=== PATIENT | female | born 1970 | race American Indian/Alaskan Native ===

== ENCOUNTER 2016-08-19 15:16 | Outpatient (CLI) | payer BC ==
--- NOTE | 2016-08-20 08:44 | Magnetic Resonance Report ---
MRI PELVIS WITHOUTAND WITH CONTRAST: 08/19/16 CLINICAL: Pelvic pain and bleeding. Status post embolization for fibroids. COMPARISON :None. TECHNIQUE: Sagittal, coronal and axial T1 and T2 fat sat sequences plus sagittal, coronal and axial postcontrast T1 fat sequences on a 1.5 Danya magnet. 15 cc of Multihance was injected intravenously for contrast portion of exam the consent was obtained prior to the administration of contrast. FINDINGS: An enlarged fibroid uterus measures approximately 18.7 cm craniocaudal dimension by 10.0 cm AP by 14.6 cm transverse dimension. The largest fibroid has complex architecture, is located subserosal in the uterine fundus to the left of midline and measures 9.0 x 6.0 x 5.9 cm. This fibroid demonstrates moderate residual enhancement. A second partially enhancing fibroid is located anterior subserosal uterine body to the left of midline and measures 3.2 x 3.8 x 3.6 centimeters. The rest of the fibroids (at least seven in number) are smaller and demonstrate no enhancement. The next largest fibroid is located submucosal in the posterior body and measures 5.0 x 5.8 cms. It demonstrates no enhancement. The uterine cavity is distended by complex nonenhancing material which is presumably blood. This measures 3 cm AP dimension. The endometrium is thin and measures approximately 6 mm. The left ovary is displaced far lateral and upward and measures 5.0 x 2.6 cm. It contains a 3.6 cm cyst. A right ovary is not identified. Minimal free fluid in the pelvis. IMPRESSION: 1. Enlarged fibroid uterus with two residual partially enhancing fibroids and at least seven non-enhancing fibroids. 2. Complex nonenhancing material distends the uterine cavity and is presumably blood or old hematoma. 3. A 3.6 cm cyst of the left ovary. 4. No right ovary identified.
== END 2016-08-19 15:17 | disposition home or self-care (01) ==
LOC: SPVIMAG 15:16
PROVIDERS: ATTEND Radiology Vascular & Interventional Radiology
DX: D25.9 Leiomyoma of uterus, unspecified (principal); N83.202 Unspecified ovarian cyst, left side; N93.9 Abnormal uterine and vaginal bleeding, unspecified
CPT/HCPCS: 72197; A9577

== ENCOUNTER 2016-12-07 10:25 | Emergency (ER) | payer BC ==
[2016-12-07] MEDS ORDERED: CATAPRES PO ONE (11:11)
--- NOTE | 2016-12-07 11:15 | Emergency Department Report ---
Chief Complaint: High BP Stated Complaint: BLOOD PRESSURE HIGH Time Seen by Provider: 12/07/16 11:10 - HPI History of Present Illness: This is a 46-year-old female with no known history was sent to the ER after being a physical today due to elevated blood pressure. Patient mentions that she has been given generalized frontal throbbing headache for the past week. She states she takes no medications. She denies fevers/chills/shortness of breath/chest pain/blurred vision. - ROS Review of Systems: As noted in HPI - Exam Vital Signs: Vital Signs 12/07/16 10:48 Temperature 98.1 F Pulse Rate 64 Respiratory 18 Rate Blood Pressure 205/116 O2 Sat by Pulse 100 Oximetry Physical Exam: GENERAL: Alert and oriented x3, no apparent distress, Normal Gait, atraumatic. EYES: Extra ocular muscles are intact. Pupils are equal, round, and reactive to light and accommodation. HEART: S1, S2 present, regular rate and rhythm without murmur, no rubs, no gallops. Non tender to palpation MSE screening note: Focused history and physical exam performed. Due to findings the following was ordered: ED Medical Decision Making - Medical Decision Making Labs ordered. EKG ordered. Patient to be seen by ED physician. Clonidine 0.2 mg quadrant. Patient put in [facility] waiting area to be monitored ED Disposition for MSE Condition: Stable
[2016-12-07 12:01] LABS: Hematocrit 42.8 % (30.3-42.9); Hemoglobin 13.8 gm/dl (10.1-14.3); Mean Corpuscular HGB Conc 32 % (30-34); Mean Corpuscular Hemoglobin 27 pg (28-32); Mean Corpuscular Volume 82 fl (79-97); Platelet Count 321 K/mm3 (140-440); Red Blood Count 5.22 M/mm3 (3.65-5.03); White Blood Count 5.5 K/mm3 (4.5-11.0)
[2016-12-07 12:09] LABS: Red Cell Distribution Width 21.2 % (13.2-15.2)
[2016-12-07 12:11] LABS: INR 0.96 (0.87-1.13)
[2016-12-07 12:12] LABS: Partial Thromboplastin Time 22.1 Sec. (24.2-36.6)
[2016-12-07 12:23] LABS: Alanine Aminotransferase 10 units/L (7-56); Albumin 4.4 g/dL (3.9-5); Albumin/Globulin Ratio 1.1 %; Alkaline Phosphatase 91 units/L (35-129); Anion Gap 17 mmol/L; BUN/Creatinine Ratio 16.66; Blood Urea Nitrogen 10 mg/dL (7-17); Calcium 9.4 mg/dL (8.4-10.2); Carbon Dioxide 27 mmol/L (22-30); Chloride 99.7 mmol/L (98-107); Glucose 109 mg/dL (65-100); Potassium 4.5 mmol/L (3.6-5.0); Sodium 139 mmol/L (137-145); Total Protein 8.4 g/dL (6.3-8.2)
[2016-12-07 13:00] LABS: Blastocytes % (Manual) 0 %
[2016-12-07 13:01] LABS: Anisocytosis 1+; Ovalocytes Few; Poikilocytosis 1+; Stomatocytes Few
[2016-12-07 13:02] LABS: Diff Status Complete; Giant Platelets Rare; Platelet Estimate Consistent w Auto
--- NOTE | 2016-12-07 13:11 | XRay Report ---
Single view chest: History: Hypertension. Findings: Normal cardiomediastinal silhouette. Trachea is midline. No consolidation, pneumothorax or pleural effusion. Impression: No acute cardiopulmonary findings.
--- NOTE | 2016-12-07 13:23 | Emergency Department Report ---
ED General Adult HPI - General Chief complaint: High BP Stated complaint: BLOOD PRESSURE HIGH Time Seen by Provider: 12/07/16 11:10 Source: patient Mode of arrival: Ambulatory Limitations: No Limitations - History of Present Illness Initial comments: Patient states that she had a routine employee physical at work. She was found to have a blood pressure 181/100 on the left and 190/106 on the right. Therefore she was sent to the emergency department for evaluation. She states that she has been told that her blood pressure has been "up and down in the past ". She denies ever being prescribed medication. Although the chart triage note states complaints of headache and blurred vision patient denies this to me. In fact, she is sleeping or keeping her eyes closed persistently throughout my exam. She has had a long will be before she may be released. I repeated her blood pressures and found them to be in the 100s systolic after she was given 0.2 clonidine at triage. She is not at all symptomatic at this time. -: unknown Consistency: other (I presume the patient has intermittent headache. She has no complaint now) Improves with: none Worsens with: none Associated Symptoms: denies other symptoms Treatments Prior to Arrival: other (clonidine as above) - Related Data Previous Rx's Medication Instructions Recorded Last Taken Type Losartan/Hydrochlorothiazide 1 each PO QDAY #30 tablet 12/07/16 Unknown Rx [Losartan-Hctz 50-12.5 mg Tab] Allergies Allergy/AdvReac Type Severity Reaction Status Date / Time No Known Allergies Allergy Unverified 12/07/16 10:58 ED Review of Systems ROS: Stated complaint: BLOOD PRESSURE HIGH Other details as noted in HPI Constitutional: denies: chills, fever Eyes: other (no visual complaints to me). denies: eye pain, eye discharge, vision change ENT: denies: ear pain, throat pain Respiratory: denies: cough, shortness of breath, wheezing Cardiovascular: denies: chest pain, palpitations Endocrine: no symptoms reported Gastrointestinal: denies: abdominal pain, nausea, diarrhea Genitourinary: denies: urgency, dysuria, discharge Musculoskeletal: denies: back pain, joint swelling, arthralgia Skin: denies: rash, lesions Neurological: as per HPI, headache. denies: weakness, numbness, paresthesias Psychiatric: denies: anxiety, depression Hematological/Lymphatic: denies: easy bleeding, easy bruising ED Past Medical Hx - Past Medical History Previous Medical History?: No - Surgical History Past Surgical History?: Yes - Social History Smoking Status: Unknown if ever smoked Substance Use Type: None - Medications Home Medications: Home Medications Medication Instructions Recorded Confirmed Last Taken Type Losartan/Hydrochlorothiazide 1 each PO QDAY #30 tablet 12/07/16 Unknown Rx [Losartan-Hctz 50-12.5 mg Tab] ED Physical Exam - General Limitations: No Limitations General appearance: alert, in no apparent distress - Head Head exam: Present: atraumatic, normocephalic - Eye Eye exam: Present: normal appearance. Absent: scleral icterus - ENT ENT exam: Present: mucous membranes moist - Neck Neck exam: Present: normal inspection. Absent: tenderness, meningismus - Respiratory Respiratory exam: Present: normal lung sounds bilaterally. Absent: respiratory distress - Cardiovascular Cardiovascular Exam: Present: regular rate, normal rhythm. Absent: systolic murmur, diastolic murmur, rubs, gallop - GI/Abdominal GI/Abdominal exam: Present: soft, normal bowel sounds. Absent: distended, tenderness, guarding, rebound, rigid - Extremities Exam Extremities exam: Present: normal inspection - Back Exam Back exam: Present: normal inspection - Neurological Exam Neurological exam: Present: alert, oriented X3, CN II-XII intact. Absent: motor sensory deficit - Psychiatric Psychiatric exam: Present: normal affect, normal mood - Skin Skin exam: Present: warm, dry, intact, normal color. Absent: rash ED Course Vital Signs 12/07/16 12/07/16 10:48 12:08 Temperature 98.1 F 98.2 F Pulse Rate 64 63 Respiratory 18 18 Rate Blood Pressure 205/116 Blood Pressure 146/86 [Left] O2 Sat by Pulse 100 100 Oximetry - Reevaluation(s) Reevaluation #1: I'm going to give the patient a prescription for a low dose of losartan HCTZ. She is somewhat bradycardic. I have instructed her to check her blood pressure first before she initiates this. She can consult with her primary care physician as well. Her blood pressure was quite labile today. 12/07/16 13:28 12/07/16 13:31 ED Medical Decision Making - Lab Data Result diagrams: 12/07/16 11:44 12/07/16 11:44 Laboratory Results - last 24 hr 12/07/16 12/07/16 12/07/16 11:44 11:44 11:44 WBC 5.5 RBC 5.22 H Hgb 13.8 Hct 42.8 MCV 82 MCH 27 L MCHC 32 RDW 21.2 H Plt Count 321 Add Manual Diff Complete Total Counted 100 Seg Neuts % (Manual) 69.0 Band Neutrophils % 0 Lymphocytes % (Manual) 21.0 Reactive Lymphs % (Man) 1.0 Monocytes % (Manual) 7.0 Eosinophils % (Manual) 1.0 Basophils % (Manual) 1.0 Metamyelocytes % 0 Myelocytes % 0 Promyelocytes % 0 Blast Cells % 0 Nucleated RBC % Not Reportable Seg Neutrophils # Man 3.8 Band Neutrophils # 0.0 Lymphocytes # (Manual) 1.2 Abs React Lymphs (Man) 0.1 Monocytes # (Manual) 0.4 Eosinophils # (Manual) 0.1 Basophils # (Manual) 0.1 Metamyelocytes # 0.0 Myelocytes # 0.0 Promyelocytes # 0.0 Blast Cells # 0.0 WBC Morphology Not Reportable Hypersegmented Neuts Not Reportable Hyposegmented Neuts Not Reportable Hypogranular Neuts Not Reportable Smudge Cells Not Reportable Toxic Granulation Not Reportable Toxic Vacuolation Not Reportable Dohle Bodies Not Reportable Pelger-Huet Anomaly Not Reportable [place] Rods Not Reportable Platelet Estimate Consistent w auto Clumped Platelets Not Reportable Plt Clumps, EDTA Not Reportable Large Platelets Not Reportable Giant Platelets Rare Platelet Satelliting Not Reportable Plt Morphology Comment Not Reportable RBC Morphology Not Reportable Dimorphic RBCs Not Reportable Polychromasia Not Reportable Hypochromasia Not Reportable Poikilocytosis 1+ Anisocytosis 1+ Microcytosis Not Reportable Macrocytosis Not Reportable Spherocytes Not Reportable Pappenheimer Bodies Not Reportable Sickle Cells Not Reportable Target Cells Not Reportable Tear Drop Cells Not Reportable Ovalocytes Few Stomatocytes Few Helmet Cells Not Reportable Pimentel-[place] Bodies Not Reportable [place] Rings Not Reportable [place] Cells Not Reportable Bite Cells Not Reportable Crenated Cell Not Reportable Elliptocytes Not Reportable Acanthocytes (Spur) Not Reportable Rouleaux Not Reportable Hemoglobin C Crystals Not Reportable Schistocytes Not Reportable Malaria parasites Not Reportable Edvin Bodies Not Reportable Hem Pathologist Commnt No PT INR APTT Sodium 139 Potassium 4.5 Chloride 99.7 Carbon Dioxide 27 Anion Gap 17 BUN 10 Creatinine 0.6 L Estimated GFR > 60 BUN/Creatinine Ratio 16.66 Glucose 109 H Calcium 9.4 Total Bilirubin 0.40 AST 14 ALT 10 Alkaline Phosphatase 91 Troponin T Total Protein 8.4 H Albumin 4.4 Albumin/Globulin Ratio 1.1 HCG, Qual Negative 12/07/16 12/07/16 11:44 11:44 WBC RBC Hgb Hct MCV MCH MCHC RDW Plt Count Add Manual Diff Total Counted Seg Neuts % (Manual) Band Neutrophils % Lymphocytes % (Manual) Reactive Lymphs % (Man) Monocytes % (Manual) Eosinophils % (Manual) Basophils % (Manual) Metamyelocytes % Myelocytes % Promyelocytes % Blast Cells % Nucleated RBC % Seg Neutrophils # Man Band Neutrophils # Lymphocytes # (Manual) Abs React Lymphs (Man) Monocytes # (Manual) Eosinophils # (Manual) Basophils # (Manual) Metamyelocytes # Myelocytes # Promyelocytes # Blast Cells # WBC Morphology Hypersegmented Neuts Hyposegmented Neuts Hypogranular Neuts Smudge Cells Toxic Granulation Toxic Vacuolation Dohle Bodies Pelger-Huet Anomaly [place] Rods Platelet Estimate Clumped Platelets Plt Clumps, EDTA Large Platelets Giant Platelets Platelet Satelliting Plt Morphology Comment RBC Morphology Dimorphic RBCs Polychromasia Hypochromasia Poikilocytosis Anisocytosis Microcytosis Macrocytosis Spherocytes Pappenheimer Bodies Sickle Cells Target Cells Tear Drop Cells Ovalocytes Stomatocytes Helmet Cells Pimentel-[place] Bodies [place] Rings Sumanth Cells Bite Cells Crenated Cell Elliptocytes Acanthocytes (Spur) Rouleaux Hemoglobin C Crystals Schistocytes Malaria parasites Edvin Bodies Hem Pathologist Commnt PT 13.3 INR 0.96 APTT 22.1 L Sodium Potassium Chloride Carbon Dioxide Anion Gap BUN Creatinine Estimated GFR BUN/Creatinine Ratio Glucose Calcium Total Bilirubin AST ALT Alkaline Phosphatase Troponin T < 0.010 Total Protein Albumin Albumin/Globulin Ratio HCG, Qual - EKG Data -: EKG Interpreted by Me EKG shows normal: sinus rhythm, axis, intervals, QRS complexes, ST-T waves Rate: normal - EKG Data Interpretation: no acute changes - Radiology Data Radiology results: report reviewed interpreted by me: No acute process Critical care attestation.: If time is entered above; I have spent that time in minutes in the direct care of this critically ill patient, excluding procedure time. ED Disposition Clinical Impression: Labile hypertension Disposition: DC-01 TO HOME OR SELFCARE Is pt being admited?: No Does the pt Need Aspirin: No Condition: Stable Instructions: Hypertension (ED) Additional Instructions: Your blood pressure was quite up and down today. You had several readings that were within the treatment range. Therefore I have given you a prescription for a blood pressure agent. I would recommend that you check your blood pressure again and confirm that it is elevated before you initiate this medication. You may consult with your primary care provider as well. Prescriptions: Losartan/Hydrochlorothiazide [Losartan-Hctz 50-12.5 mg Tab] 1 each PO QDAY #30 tablet
[2016-12-07 13:45] VITALS: BP 116/75
== END 2016-12-07 13:50 | disposition home or self-care (01) ==
LOC: ED 10:25
DX: I10 Essential (primary) hypertension (principal)
CPT/HCPCS: 36415; 71010; 80053; 84484; 84703; 85007; 85025; 85610; 85730; 93005; 93010; 99284

== ENCOUNTER 2016-12-08 11:55 | Emergency (ER) | payer BC ==
[2016-12-08 12:46] VITALS: BP 139/95
== END 2016-12-08 16:00 | disposition left against medical advice (07) ==
LOC: ED 11:55
DX: R51 Headache (principal); I10 Essential (primary) hypertension; Z53.21 Procedure and treatment not carried out due to patient leaving prior to being seen by health care provider

== ENCOUNTER 2016-12-10 10:31 | Emergency (ER) | payer BC ==
[2016-12-10 11:43] LABS: Hematocrit 41.9 % (30.3-42.9); Hemoglobin 13.4 gm/dl (10.1-14.3); Mean Corpuscular HGB Conc 32 % (30-34); Mean Corpuscular Hemoglobin 26 pg (28-32); Mean Corpuscular Volume 82 fl (79-97); Platelet Count 287 K/mm3 (140-440); Red Blood Count 5.12 M/mm3 (3.65-5.03); White Blood Count 5.1 K/mm3 (4.5-11.0)
[2016-12-10 11:44] LABS: Red Cell Distribution Width 20.7 % (13.2-15.2)
[2016-12-10 12:00] LABS: Anion Gap 18 mmol/L; BUN/Creatinine Ratio 13.33; Blood Urea Nitrogen 16 mg/dL (7-17); Calcium 9.1 mg/dL (8.4-10.2); Carbon Dioxide 28 mmol/L (22-30); Chloride 100.2 mmol/L (98-107); Glucose 91 mg/dL (65-100); Potassium 4.7 mmol/L (3.6-5.0); Sodium 141 mmol/L (137-145)
[2016-12-10 12:28] LABS: Basophils % (Manual) 0 % (0.0-1.8); Blastocytes % (Manual) 0 %
[2016-12-10 12:29] LABS: Anisocytosis 1+
[2016-12-10 12:32] LABS: Diff Status Complete
[2016-12-10 12:46] LABS: Bilirubin,Urine NEG (Negative); Blood,Urine NEG (Negative); Ketones,Urine NEG (Negative); Leukocyte Esterase,Urine SM (Negative); Mucus,Urine FEW /HPF; Nitrite,Urine NEG (Negative); Protein,Urine <15 mg/dL mg/dL (Negative); Urobilinogen,Urine < 2.0 mg/dL (<2.0); WBC,Urine < 1.0 /HPF (0.0-6.0)
[2016-12-10] MEDS ORDERED: MORPHINE IV ONE (13:09)
[2016-12-10] MEDS ORDERED: NACL ONE (13:30)
[2016-12-10] MEDS ORDERED: CATAPRES PO ONE ×2 (14:40→14:53)
--- NOTE | 2016-12-10 14:45 | Cat Scan Report ---
CT HEAD WITHOUT CONTRAST INDICATION: Headache. COMPARISON: None similar. FINDINGS: Noncontrast head CT demonstrates normal, symmetric ventricles and sulci without acute or recent infarct, hemorrhage, mass effect or midline shift. No abnormal extra-axial fluid collections. Posterior fossa structures and basilar cisterns appear within normal limits. Symmetric eye globes. Mild leftward nasal septal deviation. Clear paranasal sinuses and mastoid air cells. Intact calvarium. Normal overlying scalp soft tissues. Few radiopaque dental material incidentally noted. CONCLUSION: No acute intracranial CT abnormality, as described. Thank you for the opportunity to participate in this patient's care.
--- NOTE | 2016-12-10 14:50 | Cat Scan Report ---
CTA NECK INDICATION: Evaluate for aneurysm. COMPARISON: None similar. FINDINGS: CTA neck performed utilizing IV contrast. Axial, sagittal, coronal and MIP reconstructions obtained. Patent aortic arch and major arising branch vessels, including bilateral carotids and codominant vertebral arteries. Mild atherosclerotic calcifications. No significant atherosclerotic changes at the carotid bulb. Normal thyroid size. Clear imaged upper lungs. Patent airway. Cervical spine degenerative changes, greatest from C4-C6 with disc narrowing, spurring and neural foraminal narrowing. CONCLUSION: Normal CTA neck with other incidental findings, as described. Please correlate. Thank you for the opportunity to participate in this patient's care.
[2016-12-10] MEDS ORDERED: NORVASC PO ONE (14:53)
[2016-12-10] MEDS ORDERED: REGLAN ONE (14:58)
[2016-12-10] MEDS ORDERED: NACL 0.9% 500 ML 500 ML IV ONE (14:59)
[2016-12-10] MEDS ORDERED: BENADRYL IV ONE (14:59)
[2016-12-10] MEDS ORDERED: DECADRON IV ONE (15:00)
--- NOTE | 2016-12-10 15:00 | Cat Scan Report ---
CTA HEAD INDICATION: Evaluate for aneurysm. COMPARISON: None similar. FINDINGS: CTA of the brain performed following IV contrast. Multiplanar reconstructions, including post processing angiographic reformations obtained. Patent, normal vertebrobasilar system. Patent [place] as well. No hemodynamically significant stenosis or aneurysm identified. Normal imaged brain. Slight leftward nasal septal deviation. CONCLUSION: Normal CTA of the head, as described. Thank you for the opportunity to participate in this patient's care.
[2016-12-10] MEDS ORDERED: REGLAN IV ONE (15:08)
--- NOTE | 2016-12-10 15:29 | Emergency Department Report ---
ED General Adult HPI - General Chief complaint: High BP Stated complaint: HEADACHE/HYPERTENSION Time Seen by Provider: 12/10/16 12:59 Source: patient Mode of arrival: Ambulatory Limitations: No Limitations - History of Present Illness Initial comments: 46-year-old female with recently diagnosed hypertension presenting to the ED for blood pressure check and headache. Patient states since she was started on blood pressure medications on the ED during her last visit on Tuesday she's been having intermittent spikes in her blood pressure. Today she said her blood pressure was 200 systolic. She states she was on the way to the ED to get this evaluated when she started having sharp headache that was constant pressure sensation located in the front of her head travels throught her entire head and into her neck. pt denies neck stiffness. Pt has no worsening factors. headache is improved in a dark room while she was waiting feeding provider. Patient admits she has history of headaches. Todays headache is not the worse headache of her life. Pt denies not describe headache as thunderclap. She states headache occurred when she realized her BP was elevated. Patient denies : Fever/chills, changes in vision, neurological deficits, chest pain, abdominal pain. -: Gradual Location: head Severity scale (0 -10): 8 Quality: crushing Consistency: constant Improves with: other (dark room) Worsens with: none Associated Symptoms: headaches. denies: confusion, chest pain, cough, diaphoresis, loss of appetite, malaise, nausea/vomiting, shortness of breath, syncope, weakness - Related Data Previous Rx's Medication Instructions Recorded Last Taken Type Losartan/Hydrochlorothiazide 1 each PO QDAY #30 tablet 12/07/16 Unknown Rx [Losartan-Hctz 50-12.5 mg Tab] Butalb/Acetamin/Caff 50-325-40 1 tab PO Q6HR PRN #20 tab 12/10/16 Unknown Rx [Fioricet] amLODIPine [Norvasc] 10 mg PO DAILY #20 tab 12/10/16 Unknown Rx Allergies Allergy/AdvReac Type Severity Reaction Status Date / Time No Known Allergies Allergy Verified 12/10/16 13:35 ED Review of Systems ROS: Stated complaint: HEADACHE/HYPERTENSION Other details as noted in HPI Constitutional: denies: chills, fever Eyes: denies: eye pain, eye discharge, vision change ENT: denies: ear pain, throat pain Respiratory: denies: cough, shortness of breath, wheezing Cardiovascular: denies: chest pain, palpitations Endocrine: no symptoms reported Gastrointestinal: denies: abdominal pain, nausea, diarrhea Genitourinary: denies: urgency, dysuria, discharge Musculoskeletal: denies: back pain, joint swelling, arthralgia Skin: denies: rash, lesions Neurological: headache. denies: weakness, numbness, paresthesias, confusion, abnormal gait, vertigo Psychiatric: denies: anxiety, depression Hematological/Lymphatic: denies: easy bleeding, easy bruising ED Past Medical Hx - Past Medical History Hx Hypertension: Yes - Surgical History Additional Surgical History: Uterine fibroid embolization - Social History Smoking Status: Unknown if ever smoked Substance Use Type: None - Medications Home Medications: Home Medications Medication Instructions Recorded Confirmed Last Taken Type Losartan/Hydrochlorothiazide 1 each PO QDAY #30 tablet 12/07/16 Unknown Rx [Losartan-Hctz 50-12.5 mg Tab] Butalb/Acetamin/Caff 50-325-40 1 tab PO Q6HR PRN #20 tab 12/10/16 Unknown Rx [Fioricet] amLODIPine [Norvasc] 10 mg PO DAILY #20 tab 12/10/16 Unknown Rx ED Physical Exam - General Limitations: No Limitations General appearance: alert, in no apparent distress - Head Head exam: Present: atraumatic, normocephalic - Eye Eye exam: Present: normal appearance - ENT ENT exam: Present: mucous membranes moist - Neck Neck exam: Present: normal inspection, full ROM. Absent: tenderness, meningismus, lymphadenopathy, thyromegaly - Respiratory Respiratory exam: Present: normal lung sounds bilaterally. Absent: respiratory distress - Cardiovascular Cardiovascular Exam: Present: regular rate, normal rhythm. Absent: systolic murmur, diastolic murmur, rubs, gallop - GI/Abdominal GI/Abdominal exam: Present: soft, normal bowel sounds - Extremities Exam Extremities exam: Present: normal inspection - Back Exam Back exam: Present: normal inspection - Neurological Exam Neurological exam: Present: alert, oriented X3, CN II-XII intact, normal gait. Absent: motor sensory deficit (NIHSS: 0) - Psychiatric Psychiatric exam: Present: normal affect, normal mood - Skin Skin exam: Present: warm, dry, intact, normal color. Absent: rash ED Course Vital Signs 12/10/16 12/10/16 12/10/16 11:13 13:18 15:06 Temperature 98.1 F Pulse Rate 80 66 86 Respiratory 20 20 Rate Blood Pressure 182/117 210/109 Blood Pressure 156/83 [Left] O2 Sat by Pulse 100 99 Oximetry 12/10/16 12/10/16 16:05 16:06 Temperature Pulse Rate 69 68 Respiratory 14 18 Rate Blood Pressure Blood Pressure 148/90 148/90 [Left] O2 Sat by Pulse 99 99 Oximetry - Reevaluation(s) Reevaluation #1: 12/10/16 15:29 Patient states symptoms have improved with meds given. ED Medical Decision Making - Lab Data Result diagrams: 12/10/16 11:28 12/10/16 11:28 - EKG Data -: EKG Interpreted by Me EKG shows normal: sinus rhythm, axis (UPRIGHT), intervals (QTC 421), QRS complexes (68) Rate: normal (68) - Radiology Data Radiology results: report reviewed, image reviewed CT head without contrast final conclusion: No acute intracranial CT abnormality. DR MEDEIROS Dictating and she'll head CTA head conclusion: Normal CT of the head as described. DR MEDEIROS CTA neck conclusion: Normal CT of the neck with incidental findings as described above. Incidental findings are degenerative changes greatest at C4 C6 with disc narrowing spurring and neural foraminal narrowing. DR MEDEIROS - Medical Decision Making 46 yo female with PMHX OF HTN presenting to ED complaining of HTN and headache. Work up was negative for acute findings. I have low supsicion for SAH as pt has no : neuro deficits, change in vision, aneurysm appreciated on CT. Now that pt HTN has decreased in ED, she has no symptoms. Repeat neuro exam: AAOX4, steady gait, intact sensation. Pt agrees she is stable to dc home. I will add amlodipine to her medication regime. She has pcp follow up on 12/14/2016 Critical Care Time: No Critical care attestation.: If time is entered above; I have spent that time in minutes in the direct care of this critically ill patient, excluding procedure time. ED Disposition Clinical Impression: Labile hypertension, Migraine Disposition: DC-01 TO HOME OR SELFCARE Is pt being admited?: No Does the pt Need Aspirin: No Condition: Stable Instructions: Acute Headache (ED), Hypertension (ED) Prescriptions: amLODIPine [Norvasc] 10 mg PO DAILY #20 tab Butalb/Acetamin/Caff 50-325-40 [Fioricet] 1 tab PO Q6HR PRN #20 tab PRN Reason: Headache Referrals: KAYE NOEL MD [Primary Care Provider] - 3-5 Days SHARON DOMINGUEZ MD [Staff Physician] - 3-5 Days Forms: Work/School Release Form(ED)
[2016-12-10 16:06] VITALS: BP 148/90
== END 2016-12-10 16:28 | disposition home or self-care (01) ==
LOC: ED 10:31
DX: I10 Essential (primary) hypertension (principal); G43.909 Migraine, unspecified, not intractable, without status migrainosus
CPT/HCPCS: 36415; 70450; 70496; 70498; 80048; 81001; 81025; 84484; 85007; 85025; 93005; 93010; 96361; 96374; 96375; 99285; J1100; J1200; J2270; J2765; J7040; Q9967

== ENCOUNTER 2018-02-07 10:23 | Emergency (ER) | payer SELFPAY ==
[2018-02-07] MEDS ORDERED: ZESTRIL ONE (10:41)
[2018-02-07] MEDS ORDERED: ZESTRIL PO ONE (10:41)
--- NOTE | 2018-02-07 13:29 | Emergency Department Report ---
ED Recheck HPI - General Chief Complaint: High BP Stated Complaint: HYPERTENSION Time Seen by Provider: 02/07/18 12:51 Source: patient, EMS Mode of arrival: Ambulatory Limitations: No Limitations - History of Present Illness Initial Comments: 47-year-old female with history of hypertension presents to ED with complaints of elevated blood pressure. Patient was seen at outside clinic and sent to the ER for elevated BP. Patient reports has been off BP meds 1 year. Complaint: medication refill request Initial Visit For: other (med refill) Returns Today for: request for prescription Context: ran out of medication Associated Symptoms: other (reports headache). denies: shortness of breath, abdominal pain - Related Data Previous Rx's Medication Instructions Recorded Last Taken Type Losartan/Hydrochlorothiazide 1 each PO QDAY #30 tablet 12/07/16 Unknown Rx [Losartan-Hctz 50-12.5 mg Tab] Butalb/Acetamin/Caff 50-325-40 1 tab PO Q6HR PRN #20 tab 12/10/16 Unknown Rx [Fioricet] amLODIPine [Norvasc] 10 mg PO DAILY #20 tab 12/10/16 Unknown Rx Lisinopril/Hydrochlorothiazide 1 tab PO QDAY #30 tab 02/07/18 Unknown Rx [Zestoretic 20-25 mg] Allergies Allergy/AdvReac Type Severity Reaction Status Date / Time Penicillins Allergy Rash Verified 02/07/18 10:27 ED Review of Systems ROS: Stated complaint: HYPERTENSION Other details as noted in HPI Comment: All other systems reviewed and negative Respiratory: denies: shortness of breath Cardiovascular: denies: chest pain Gastrointestinal: denies: nausea, vomiting Neurological: headache ED Past Medical Hx - Past Medical History Previous Medical History?: Yes Hx Hypertension: Yes Hx Psychiatric Treatment: Yes (bipolar, anxiety, depression) - Surgical History Past Surgical History?: Yes Additional Surgical History: Uterine fibroid embolization - Social History Smoking Status: Never Smoker Substance Use Type: None - Medications Home Medications: Home Medications Medication Instructions Recorded Confirmed Last Taken Type Losartan/Hydrochlorothiazide 1 each PO QDAY #30 tablet 12/07/16 Unknown Rx [Losartan-Hctz 50-12.5 mg Tab] Butalb/Acetamin/Caff 50-325-40 1 tab PO Q6HR PRN #20 tab 12/10/16 Unknown Rx [Fioricet] amLODIPine [Norvasc] 10 mg PO DAILY #20 tab 12/10/16 Unknown Rx Lisinopril/Hydrochlorothiazide 1 tab PO QDAY #30 tab 02/07/18 Unknown Rx [Zestoretic 20-25 mg] ED Physical Exam - General Limitations: No Limitations General appearance: alert, in no apparent distress - Head Head exam: Present: atraumatic, normocephalic - Eye Eye exam: Present: normal appearance - ENT ENT exam: Present: mucous membranes moist - Neck Neck exam: Present: normal inspection - Respiratory Respiratory exam: Present: normal lung sounds bilaterally. Absent: respiratory distress - Cardiovascular Cardiovascular Exam: Present: regular rate, normal rhythm - GI/Abdominal GI/Abdominal exam: Present: soft, distended. Absent: tenderness - Extremities Exam Extremities exam: Present: normal inspection - Neurological Exam Neurological exam: Present: alert, oriented X3 - Psychiatric Psychiatric exam: Present: normal affect, normal mood - Skin Skin exam: Present: warm, dry, intact, normal color, rash ED Course Vital Signs 02/07/18 02/07/18 10:27 10:42 Temperature 98.2 F Pulse Rate 56 L 56 L Respiratory 18 Rate Blood Pressure 194/80 194/80 O2 Sat by Pulse 100 Oximetry ED Recheck MDM - Differential Diagnosis medication noncompliance, HTN urgency, essential HTN - Medical Decision Making 47 yo female history of hypertension here for med refill. He has been out of medication times earlier. Patient asymptomatic other than slight headache, which she attributes to the fact that she got her hair braided too tight on yesterday. Patient given lisinopril and HCTZ prescriptions Critical care attestation.: If time is entered above; I have spent that time in minutes in the direct care of this critically ill patient, excluding procedure time. ED Disposition Clinical Impression: Essential hypertension, Medication refill Disposition: -01 TO HOME OR SELFCARE Is pt being admited?: No Condition: Stable Instructions: Hypertension (ED) Prescriptions: Lisinopril/Hydrochlorothiazide [Zestoretic 20-25 mg] 1 tab PO QDAY #30 tab Referrals: [facility] [Provider Group] - 3-5 Days [facility] [Outside] - 3-5 Days Time of Disposition: 13:26
[2018-02-07 13:40] VITALS: BP 182/95
== END 2018-02-07 13:39 | disposition home or self-care (01) ==
LOC: ED 10:23
DX: I10 Essential (primary) hypertension (principal); Z76.0 Encounter for issue of repeat prescription; F41.9 Anxiety disorder, unspecified; F31.9 Bipolar disorder, unspecified; Z88.0 Allergy status to penicillin; D25.9 Leiomyoma of uterus, unspecified
CPT/HCPCS: 99283

== ENCOUNTER 2018-06-15 14:43 | Emergency (ER) | payer SELFPAY | END 2018-06-15 15:00 | disposition left against medical advice (07) | LOC: ED 14:43 ==